=== PATIENT | male | born 1945 | race Caucasian/White ===

== ENCOUNTER → 2018-10-27 | Outpatient (CLI) | payer MEDICARE | END | disposition home or self-care (01) | LOC: SHCH 13:40 | PROVIDERS: ATTEND Internal Medicine Cardiovascular Disease | DX: I51.7 Cardiomegaly (principal) | CPT/HCPCS: 93306 ==

== ENCOUNTER → 2018-11-06 | Outpatient (CLI) | payer MEDICARE ==
[~2018-11-06] VITALS: Ht 185.4 cm; Wt 100.7 kg
[~2018-11-06] MED LIST: REGADENOSON 0.4 MG/5 ML PF SYG IVP SCH
== END | disposition home or self-care (01) ==
LOC: EDUNIT# 10-31 08:30 → SHCH 09:37
PROVIDERS: ATTEND Internal Medicine Cardiovascular Disease
DX: I25.9 Chronic ischemic heart disease, unspecified (principal)
CPT/HCPCS: 78452; 93017; 96374; A9500 ×2; J2785

== ENCOUNTER 2018-11-23 09:17 | Day surgery (SDC) | payer MEDICARE ==
[2018-11-21 16:07] LABS: BASOPHILS % (AUTO) 0.2 % (0.0-5.0); EOSINOPHILS % (AUTO) 1.5 % (0.0-8.0); HEMATOCRIT 40.1 % (42-54); LYMPHOCYTES % (AUTO) 28.4 % (21.0-51.0); MEAN CORPUSCULAR HEMOGLOBIN 30.5 pg (27.0-33.0); MEAN CORPUSCULAR HGB CONC 33.8 g/dL (32.0-36.0); MEAN CORPUSCULAR VOLUME 90.4 fL (79-99); MONOCYTES % (AUTO) 8.2 % (3.0-13.0); NEUTROPHILS % (AUTO) 61.7 % (40.0-77.0); PLATELET COUNT (AUTO) 153 K/uL (130-400); RED BLOOD CELL COUNT(AUTO) 4.43 MIL/uL (4.50-6.20); RED CELL DISTRIBUTION WIDTH 13.6 % (11.0-15.5); WHITE BLOOD COUNT (AUTO) 6.5 K/uL (4.8-10.8)
[2018-11-21 16:08] LABS: APPEARANCE,URINE Clear (CLEAR); BILIRUBIN,URINE Negative (NEGATIVE); COLOR,URINE Yellow (YELLOW); GLUCOSE, URINE (UA) Negative (NEGATIVE); KETONES,URINE Negative (NEGATIVE); LEUKOCYTE ESTERASE ,URINE Negative (NEGATIVE); NITRATE,URINE Negative (NEGATIVE); OCCULT BLOOD,URINE Negative (NEGATIVE); PH,URINE 5.5 (5.0-8.0); PROTEIN,URINE Negative (NEGATIVE)
[2018-11-21 16:21] LABS: CREATININE 1.4 mg/dL (0.5-1.5); PROTHROMBIN TIME 10.5 SEC (9.6-11.6)
[2018-11-21 16:24] VITALS: BP 140/68
--- NOTE | 2018-11-21 16:30 | NUR ---
CONSENT PATIENT HAS MANY QUESTIONS RELATED TO THE [facility] FOR 11/23/18...I INSTRUCTED PATIENT TO CALL DR GIVENS'S OFFICE TOMORROW AND THEN SIGN CONSENT ON DAY OF PROCEDURE. PATIENT VERBALIZED UNDERSTANDING
--- NOTE | 2018-11-22 14:07 | NUR ---
labs abnormal BUN/CREA reported to Isabella WARNER, no further orders given
[~2018-11-23] VITALS: Ht 185.4 cm; Wt 103.9 kg
[2018-11-23] VITALS (9 sets, daily range): BP systolic 114–147; BP diastolic 53–73
[~2018-11-23 09:17] MED LIST changes: +AEC81 PO; +LOSA50TA64 PO; +OMEG1CAP67 PO; -REGADENOSON 0.4 MG/5 ML PF SYG IVP SCH; +ROSU5TAB12 PO; +SODIUM CHLORIDE 0.9% 500ML 500 ML IV SCH
[2018-11-23] MEDS ORDERED: SODIUM CHLORIDE 0.9% 1000ML 1,000 ML IV ONE (10:17)
[2018-11-23] MEDS ORDERED: IOHEXOL-350 50ML VIAL IV ONE (15:43)
[2018-11-23] MEDS ORDERED: NITROGLYCERIN 5 MG/ML 10 ML VIAL IV ONE (15:43)
[2018-11-23] MEDS ORDERED: LIDOCAINE HCL 2% 20ML ONE (15:43)
[2018-11-23] MEDS ORDERED: IOHEXOL 350 MG/ML 100ML INFUS..BTL IV ONE (15:43)
[2018-11-23] MEDS ORDERED: LABETALOL HCL 5 MG/ML 20ML VIAL IV ONE (16:12)
[2018-11-23] MEDS ORDERED: SODIUM CHLORIDE 0.9% 1000ML 1,000 ML IV SCH (16:15)
[2018-11-23] MEDS ORDERED: DEXTROSE 50%-WATER 50 ML DISP.SYRIN IV PRN (16:15)
[2018-11-23] MEDS ORDERED: NITROGLYCERIN 0.4 MG SL TAB SL PRN (16:15)
[2018-11-23] MEDS ORDERED: HYDRALAZINE HCL 20 MG/ML VIAL IV PRN (16:15)
[2018-11-23] MEDS ORDERED: METOPROLOL TARTRATE 1 MG/ML 5ML VIAL IV PRN (16:15)
[2018-11-23] MEDS ORDERED: GLUCAGON 1MG KIT 1 MG ML IM PRN (16:15)
[2018-11-23] MEDS ORDERED: HYDRALAZINE HCL 20 MG/ML VIAL ONE (16:30)
--- NOTE | 2018-11-23 20:00 | NUR ---
PT IS AAOX3 , NO C/O PAIN TO RT GROIN, DRESSING IN DRY AND INTACT. EXPLAINED CARE INSTRUCTIONS AND EMERGENCY CARE TO PT AND HIS , BOTH VERBALIZED UNDERSTANDING. PT ABLE TO AMBULATE TO RESTROOM AND DRESS HIMSELF. PT PLACED IN WHEELCHAIR AND DRIVEN HOME BY FAMILY.
== END 2018-11-23 20:00 | disposition home or self-care (01) ==
LOC: DAH 09:17
PROVIDERS: ATTEND Internal Medicine Cardiovascular Disease
DX: I25.119 Atherosclerotic heart disease of native coronary artery with unspecified angina pectoris (principal); R07.9 Chest pain, unspecified; R94.39 Abnormal result of other cardiovascular function study
CPT/HCPCS: 36415; 71045; 80048; 81003; 85025; 85610; 85730; 93005; 93458; A4606; C1760; C1894 ×2; J0360; J1644; J3490 ×3; J7030; Q9965; Q9967

== ENCOUNTER → 2019-07-26 | Outpatient (CLI) | payer MEDICARE ==
[~2019-07-26] MED LIST changes: -SODIUM CHLORIDE 0.9% 500ML 500 ML IV SCH
== END | disposition home or self-care (01) ==
LOC: RAH 10:43
PROVIDERS: ATTEND Physical Medicine & Rehabilitation
DX: M47.816 Spondylosis without myelopathy or radiculopathy, lumbar region (principal); M48.061 Spinal stenosis, lumbar region without neurogenic claudication
CPT/HCPCS: 72148

== ENCOUNTER → 2021-01-20 | Outpatient (CLI) | payer MEDICARE | END | disposition home or self-care (01) | LOC: RAH 15:03 | PROVIDERS: ATTEND Physical Medicine & Rehabilitation | DX: M51.16 Intervertebral disc disorders with radiculopathy, lumbar region (principal); M48.07 Spinal stenosis, lumbosacral region; M71.38 Other bursal cyst, other site; R25.2 Cramp and spasm | CPT/HCPCS: 72148 ==